=== PATIENT | male | born 1985 | race African-American/Black ===

== ENCOUNTER 2020-09-12 17:45 | Observation (INO) | payer BC ==
[~2020-09-12] VITALS: Ht 182.9 cm; Wt 111.1 kg
[2020-09-12] MEDS ORDERED: ACETAMINOPHEN 325 MG TAB PO ONE (18:00)
[2020-09-12 18:19] LABS: BASOPHILS % 0.3 % (0.0-1.0); EOSINOPHILS # (AUTO) 0.1 (0.0-0.4); EOSINOPHILS % 0.7 % (0.0-6.0); HEMATOCRIT 39.7 % (38.2-49.6); HEMOGLOBIN 14.5 g/dL (14.0-18.0); LYMPHOCYTES # (AUTO) 2.6 (1.0-3.2); LYMPHOCYTES % 24.9 % (18.0-39.1); MEAN CORPUSCULAR HEMOGLOBIN 30.1 pg (28-32); MEAN CORPUSCULAR HGB CONC 36.5 g/dL (31-35); MEAN CORPUSCULAR VOLUME 82.5 fL (81-99); MONOCYTES # (AUTO) 1.2 (0.2-0.8); MONOCYTES % 11.2 % (4.4-11.3); NEUTROPHILS # (AUTO) 6.5 (2.1-6.9); NEUTROPHILS % 62.4 % (38.7-80.0); PLATELET COUNT 267 x10e3/uL (140-360); RED BLOOD COUNT 4.81 x10e6/uL (4.3-5.7); RED CELL DISTRIBUTION WIDTH 12.7 % (11.7-14.4)
[2020-09-12 18:25] LABS: INR 1.03; PARTIAL THROMBOPLASTIN TIME 28.6 seconds (23.8-35.5); PROTHROMBIN TIME 14.1 seconds (11.9-14.5)
[2020-09-12] MEDS ORDERED: SODIUM CHLORIDE 0.9% 1000ML 1,000 ML IV ONE ×2 (18:30)
[2020-09-12 18:32] LABS: ALANINE AMINOTRANSFERASE 72 IU/L (0-55); ALBUMIN 3.6 g/dL (3.5-5.0); ALBUMIN/GLOBULIN RATIO 0.6 (0.8-2.0); ALKALINE PHOSPHATASE 148 IU/L (40-150); ANION GAP 12.7 mmol/L (8-16); BLOOD UREA NITROGEN 6 mg/dL (7-26); BUN/CREATININE RATIO 6 (6-25); CALCIUM 8.9 mg/dL (8.4-10.2); CARBON DIOXIDE 24 mmol/L (22-29); CHLORIDE 100 mmol/L (98-107); CREATININE, SERUM 1.03 mg/dL (0.72-1.25); EST GLOMERULAR FILTRATION RATE > 60 ML/MIN (60-); GLUCOSE 137 mg/dL (74-118); POTASSIUM 3.7 mmol/L (3.5-5.1); SODIUM 133 mmol/L (136-145)
[2020-09-12] MEDS: PIPERACILLIN/TAZOBAC 3.375 GM in SODIUM CHLORIDE 0.9% 50ML 50 ML IV SCH (18:39)
[2020-09-12] MEDS ORDERED: KEPPRA250 MG PO (18:46)
[2020-09-12] MEDS ORDERED: LEVETIRACETAM 500 MG TAB PO ONE (19:00)
[2020-09-12] MEDS ORDERED: MORPHINE SULFATE INJ 4 MG/ML INJ 1ML IV PRN (19:00)
[2020-09-12] MEDS ORDERED: ACETAMINOPHEN 325 MG TAB PO PRN (19:00)
[2020-09-12] MEDS ORDERED: ONDANSETRON HCL INJ 2MG/ML 2ML 2 MG/ML VIAL IV PRN (19:00)
[2020-09-12] MEDS: VANCOMYCIN 1GM/NS 250 ML 250 ML IV SCH (19:50)
[2020-09-12] MEDS: SODIUM CHLORIDE 0.9% 1000ML 1,000 ML IV SCH ×2 (19:51→22:57)
[2020-09-12 23:00] VITALS: BP 114/68
[2020-09-13] VITALS (7 sets, daily range): BP systolic 112–149; BP diastolic 17–99
[2020-09-13] MEDS ORDERED: SODIUM CHLORIDE 0.9% 50ML 50 ML ONE ×3 (00:03→21:16)
[2020-09-13] MEDS ORDERED: PIPERACILLIN/TAZOBAC 3.375 GM VIAL ONE ×4 (00:03→21:16)
[2020-09-13] MEDS: PIPERACILLIN/TAZOBAC 3.375 GM in SODIUM CHLORIDE 0.9% 50ML 50 ML IV SCH ×3 (03:57→17:00)
[2020-09-13 06:19] LABS: BASOPHILS % 0.3 % (0.0-1.0); EOSINOPHILS % 0.2 % (0.0-6.0); HEMATOCRIT 38.2 % (38.2-49.6); HEMOGLOBIN 13.7 g/dL (14.0-18.0); LYMPHOCYTES # (AUTO) 1.8 (1.0-3.2); LYMPHOCYTES % 14.9 % (18.0-39.1); MEAN CORPUSCULAR HEMOGLOBIN 29.8 pg (28-32); MEAN CORPUSCULAR HGB CONC 35.9 g/dL (31-35); MONOCYTES # (AUTO) 1.3 (0.2-0.8); MONOCYTES % 11.3 % (4.4-11.3); NEUTROPHILS # (AUTO) 8.7 (2.1-6.9); NEUTROPHILS % 72.9 % (38.7-80.0); PLATELET COUNT 264 x10e3/uL (140-360); RED CELL DISTRIBUTION WIDTH 12.7 % (11.7-14.4)
[2020-09-13 06:45] LABS: ALANINE AMINOTRANSFERASE 65 IU/L (0-55); ALBUMIN 3.5 g/dL (3.5-5.0); ALBUMIN/GLOBULIN RATIO 0.7 (0.8-2.0); ALKALINE PHOSPHATASE 161 IU/L (40-150); BLOOD UREA NITROGEN 5 mg/dL (7-26); BUN/CREATININE RATIO 5 (6-25); CARBON DIOXIDE 23 mmol/L (22-29); CHLORIDE 102 mmol/L (98-107); CREATININE, SERUM 1.11 mg/dL (0.72-1.25); EST GLOMERULAR FILTRATION RATE > 60 ML/MIN (60-); GLUCOSE 126 mg/dL (74-118); SODIUM 134 mmol/L (136-145)
[2020-09-13] MEDS ORDERED: LEVETIRACETAM 500 MG TAB PO SCH (09:00)
[2020-09-13] MEDS ORDERED: BUPIVACAINE HCL 0.5% INJ 30 ML VIAL INJ ONE (09:24)
[2020-09-13] MEDS ORDERED: HYDROCODONE/APAP 5MG-325MG TAB PO PRN (09:30)
[2020-09-13] MEDS ORDERED: MORPHINE SULFATE 5 MG/ML VIAL IV PRN (09:30)
[2020-09-13] MEDS ORDERED: ONDANSETRON HCL INJ 2MG/ML 2ML 2 MG/ML VIAL IV PRN ×2 (09:30→20:15)
[2020-09-13] MEDS: VANCOMYCIN 1GM/NS 250 ML 250 ML IV SCH ×2 (11:03→19:00)
[2020-09-13] MEDS ORDERED: POLYETHYLENE GLYCOL 3350 17 GM PACK PO PRN (14:15)
[2020-09-13] MEDS ORDERED: METOPROLOL TARTRATE INJ 1 MG/ML VIAL IV PRN (14:15)
[2020-09-13] MEDS ORDERED: PROPOFOL IV EMULSION 10 MG/ML 20 ML VIAL ONE (16:39)
[2020-09-13] MEDS ORDERED: LIDOCAINE HCL 2% LOCAL INJ 5 ML SDV VIAL INJ ONE (16:39)
[2020-09-13] MEDS ORDERED: MIDAZOLAM HCL 2 MG/2 ML VIAL ONE (16:45)
[2020-09-13] MEDS ORDERED: FENTANYL CITRATE/PF 100MCG/2 ML INJ ONE (16:45)
[2020-09-13] MEDS ORDERED: MORPHINE SULFATE INJ 10 MG/ML ONE (16:45)
[2020-09-13] MEDS: FAMOTIDINE 20 MG TAB PO SCH (16:59)
[2020-09-13] MEDS ORDERED: DOCUSATE SODIUM 100 MG CAP PO SCH (17:00)
[2020-09-13] MEDS ORDERED: HYDRALAZINE HCL 20 MG/ML VIAL IV PRN (20:15)
[2020-09-13] MEDS ORDERED: MELATONIN 5 MG TABLET PO PRN (20:15)
[2020-09-13] MEDS ORDERED: ACETAMINOPHEN 325 MG TAB PO PRN (20:15)
[2020-09-13] MEDS ORDERED: TEMAZEPAM 15 MG CAP PO PRN (21:00)
[2020-09-14] VITALS: BP 114/69
[2020-09-14] MEDS: PIPERACILLIN/TAZOBAC 3.375 GM in SODIUM CHLORIDE 0.9% 50ML 50 ML IV SCH (01:57)
[2020-09-14 04:00] VITALS: BP 124/73
[2020-09-14 06:16] LABS: BASOPHILS % 0.2 % (0.0-1.0); EOSINOPHILS % 0.1 % (0.0-6.0); HEMATOCRIT 33.5 % (38.2-49.6); LYMPHOCYTES % 20.8 % (18.0-39.1); MEAN CORPUSCULAR HEMOGLOBIN 29.7 pg (28-32); MEAN CORPUSCULAR HGB CONC 35.8 g/dL (31-35); MEAN CORPUSCULAR VOLUME 82.9 fL (81-99); MONOCYTES % 10.2 % (4.4-11.3); NEUTROPHILS # (AUTO) 6.4 (2.1-6.9); NEUTROPHILS % 68.4 % (38.7-80.0); PLATELET COUNT 231 x10e3/uL (140-360); RED BLOOD COUNT 4.04 x10e6/uL (4.3-5.7); RED CELL DISTRIBUTION WIDTH 12.6 % (11.7-14.4)
[2020-09-14 06:45] LABS: ALANINE AMINOTRANSFERASE 49 IU/L (0-55); ALBUMIN 3.1 g/dL (3.5-5.0); ALBUMIN/GLOBULIN RATIO 0.6 (0.8-2.0); ALKALINE PHOSPHATASE 129 IU/L (40-150); ANION GAP 11.4 mmol/L (8-16); BLOOD UREA NITROGEN 12 mg/dL (7-26); BUN/CREATININE RATIO 10 (6-25); CALCIUM 8.7 mg/dL (8.4-10.2); CARBON DIOXIDE 26 mmol/L (22-29); CHLORIDE 103 mmol/L (98-107); CREATININE, SERUM 1.15 mg/dL (0.72-1.25); EST GLOMERULAR FILTRATION RATE > 60 ML/MIN (60-); GLUCOSE 118 mg/dL (74-118); MAGNESIUM 2.2 MG/DL (1.3-2.1); POTASSIUM 4.4 mmol/L (3.5-5.1); SODIUM 136 mmol/L (136-145)
[2020-09-14] MEDS ORDERED: ULTRAM50 MG PO (06:54)
[2020-09-14] MEDS ORDERED: CLEOCIN HCL300 MG PO (06:54)
[2020-09-14] MEDS: VANCOMYCIN 1GM/NS 250 ML 250 ML IV SCH (07:00)
[2020-09-14] MEDS: FAMOTIDINE 20 MG TAB PO SCH (07:30)
[2020-09-14 07:40] LABS: CHOL/HDL RATIO 6.7 (3.9-4.7); CHOLESTEROL 195 MD/DL (0-199); HDL CHOLESTEROL 29 MG/DL (40-60); LDL CHOLESTEROL 128 MG/DL (60-130); TRIGLYCERIDES 192 MG/DL (0-149)
[2020-09-14 07:44] VITALS: BP 133/93
[2020-09-14 08:00] LABS: THYROID STIMULATING HORMONE 1.251 uIU/mL (0.350-4.940)
[2020-09-14] MEDS ORDERED: ONDANSETRON HCL 4 MG ORAL DISINTEGRATING TAB PO PRN (08:30)
[2020-09-14 08:41] VITALS: BP 133/93
[2020-09-14] MEDS ORDERED: MAGNESIUM OXIDE 400 MG TAB PO SCH (09:00)
[2020-09-14] MEDS ORDERED: ASCORBIC ACID 500 MG TAB PO SCH (09:00)
[2020-09-14] MEDS ORDERED: OYST-CAL-D 500MG TABLET PO SCH (09:00)
[2020-09-14] MEDS ORDERED: LEVETIRACETAM 500 MG TAB PO SCH (09:00)
[2020-09-14] MEDS ORDERED: MULTIVITAMINS/MINERALS TAB PO SCH (09:00)
[2020-09-14] MEDS ORDERED: LEVETIRACETAM 250 MG PO SCH (09:00)
[2020-09-14] MEDS ORDERED: ZINC SULFATE 220 MG CAP PO SCH (09:00)
== END 2020-09-14 10:41 | disposition home or self-care (01) ==
LOC: ER 18:00 → ERHOLD 18:52 → MED/SURG3 23:19
PROVIDERS: ADMIT Internal Medicine; ATTEND Internal Medicine
DX: A41.9 Sepsis, unspecified organism (principal); L05.01 Pilonidal cyst with abscess; R65.20 Severe sepsis without septic shock; G40.909 Epilepsy, unspecified, not intractable, without status epilepticus; F17.210 Nicotine dependence, cigarettes, uncomplicated; E87.1 Hypo-osmolality and hyponatremia; E66.9 Obesity, unspecified; Z68.33 Body mass index [BMI] 33.0-33.9, adult; Z83.3 Family history of diabetes mellitus; Z82.5 Family history of asthma and other chronic lower respiratory diseases; Z88.8 Allergy status to other drugs, medicaments and biological substances; Z20.822 Contact with and (suspected) exposure to COVID-19
CPT/HCPCS: 11771; 36415 ×3; 71045; 80053 ×3; 80061; 83036; 83605; 83735; 84100; 84443; 85025 ×3; 85610; 85730; 87040; 87071; 87075; 87205; 88304; 88312; 93005; 96360; 96361 ×2; 99284; G0378 ×3; J2001; J2250; J2270 ×2; J2405; J2543 ×2; J2704; J3010; J3370 ×2; J7030 ×2; U0002

== ENCOUNTER 2021-02-12 11:23 | Emergency (ER) | payer BC ==
[~2021-02-12] VITALS: Ht 208.3 cm; Wt 111.1 kg
[~2021-02-12 11:23] MED LIST: CLEOCIN HCL300 MG PO; KEPPRA250 MG PO; ULTRAM50 MG PO
== END 2021-02-12 12:21 | disposition home or self-care (01) ==
LOC: ER 11:44
DX: R50.9 Fever, unspecified (principal); R05 Cough; G40.909 Epilepsy, unspecified, not intractable, without status epilepticus; J45.909 Unspecified asthma, uncomplicated
CPT/HCPCS: 99283

== ENCOUNTER 2021-11-26 10:13 | Emergency (ER) | payer SELFPAY ==
[~2021-11-26] VITALS: Ht 208.3 cm; Wt 111.1 kg
[2021-11-26] MEDS ORDERED: MONTELUKAST SOD10 MG PO (10:40)
== END 2021-11-26 10:58 | disposition home or self-care (01) ==
LOC: ER 10:45
DX: R51.9 Headache, unspecified (principal); J31.0 Chronic rhinitis; J45.909 Unspecified asthma, uncomplicated; G40.909 Epilepsy, unspecified, not intractable, without status epilepticus
CPT/HCPCS: 99283

== ENCOUNTER 2022-02-18 11:36 | Emergency (ER) | payer SELFPAY ==
[~2022-02-18] VITALS: Ht 208.3 cm; Wt 111.1 kg
[~2022-02-18 11:36] MED LIST changes: +MONTELUKAST SOD10 MG PO
[2022-02-18] MEDS ORDERED: PREDNISONE 20 MG TAB PO ONE (11:45)
[2022-02-18] MEDS ORDERED: KETOROLAC TROMETHAMINE 10 MG TAB PO ONE (12:30)
[2022-02-18] MEDS ORDERED: ACETAMINOPHEN 325 MG TAB PO ONE (12:45)
[2022-02-18] MEDS ORDERED: PREDNISONE50 MG PO (13:17)
[2022-02-18] MEDS ORDERED: METHOCARBAMOL500 MG PO (13:18)
== END 2022-02-18 13:41 | disposition home or self-care (01) ==
LOC: ER 11:38
DX: M47.26 Other spondylosis with radiculopathy, lumbar region (principal); G40.909 Epilepsy, unspecified, not intractable, without status epilepticus; J45.909 Unspecified asthma, uncomplicated
CPT/HCPCS: 72100; 99283